=== PATIENT | female | born 1955 | race Caucasian/White ===

== ENCOUNTER 2023-06-14 20:02 | Emergency (ER) | payer OTHER ==
[~2023-06-14] VITALS: Ht 162.6 cm; Wt 81.7 kg
[~2023-06-14 20:02] MED LIST: CELE200 PO; DYAZIDE 37.5-21 EACH PO; ELIQUIS5 M3 PO; OMEP20ER PO; Ventolin/Prove6.7 GM INH
[2023-06-14 20:15] VITALS: BP 147/98
[2023-06-14] MEDS ORDERED: RX Prepack 6 Tabs Oxycodone 5mg UD ONE (23:25)
== END 2023-06-14 23:40 | disposition home or self-care (01) ==
LOC: ER 20:02
DX: S42.331A Displaced oblique fracture of shaft of humerus, right arm, initial encounter for closed fracture (principal); S00.03XA Contusion of scalp, initial encounter; Z79.899 Other long term (current) drug therapy; Y92.814 Boat as the place of occurrence of the external cause; Z79.51 Long term (current) use of inhaled steroids; Z79.01 Long term (current) use of anticoagulants; W01.0XXA Fall on same level from slipping, tripping and stumbling without subsequent striking against object, initial encounter
CPT/HCPCS: 70450; 73060; 99284-25; A9270

== ENCOUNTER → 2023-09-30 | Outpatient (CLI) | payer OTHER ==
[~2023-09-30] MED LIST changes: +BUDESONIDE-FO10.2 G3 INH; +Norco 5-325 Ta1 EACH PO
[2023-09-30 11:52] LABS: Source, Urine Clean Catch
[2023-09-30 19:02] LABS: Appearance, Urine Clear (Clear); Bilirubin, Urine Neg (Neg); Blood, Urine 1+ (Neg); Color, Urine Yellow (P-Yellow); Glucose Qualitative, Urine Neg (Neg); Ketones, Urine Neg (Neg); Leukocyte Esterase, Urine 1+ (Neg); Nitrite, Urine Neg (Neg); Protein, Urine Neg (Neg); Urobilinogen, Urine NORM (Normal)
[2023-09-30 19:22] LABS: Bacteria Few /hpf; Squamous Epithelial Cells Few /hpf (Few); Transitional Epithelial Cells Rare /hpf (0-Rare)
[2023-09-30 19:40] LABS: Microalb/Creat Ratio UR, Rand Unable to Calculate mg/g (0.000-30.000); Microalbumin, Random Urine <5.000 mg/L (0.000-20.000)
== END | disposition home or self-care (01) ==
LOC: LAB 11:51 → LAB SHORT 11:51
PROVIDERS: Student in an Organized Health Care Education/Training Program
DX: N18.31 Chronic kidney disease, stage 3a (principal)
CPT/HCPCS: 81001; 82043; 82570

== ENCOUNTER 2023-10-01 18:50 | Inpatient (IN) | payer OTHER ==
[~2023-10-01] VITALS: Ht 170.2 cm; Wt 72.1 kg
[2023-10-01 19:16] LABS: BASOPHILS ABSOLUTE AUTO 0.02 K/mm3 (0.00-0.23); BASOPHILS PERCENT AUTO 0 % (0-2); EOSINOPHILS ABSOLUTE AUTO 0.03 K/mm3 (0.00-0.68); EOSINOPHILS PERCENT AUTO 1 % (0-6); Hematocrit 35.5 % (33.0-51.0); Hemoglobin 11.6 g/dL (11.5-16.0); IMMATURE GRAN PERCENT AUTO 0 % (0-1); LYMPHOCYTES ABSOLUTE AUTO 1.24 K/mm3 (0.84-5.20); LYMPHOCYTES PERCENT AUTO 25 % (21-46); MONOCYTES ABSOLUTE AUTO 0.46 K/mm3 (0.16-1.47); MONOCYTES PERCENT AUTO 9 % (4-13); Mean Corpuscular HGB 31.8 pg (26.0-34.0); Mean Corpuscular HGB Conc 32.7 g/dL (31.5-36.5); Mean Corpuscular Volume 97 fL (80-100); Mean Platelet Volume 8.9 fL (9.1-12.4); NEUTROPHILS ABSOLUTE AUTO 3.16 K/mm3 (1.96-9.15); NEUTROPHILS PERCENT AUTO 64 % (41-73); Platelet Count 223 K/mm3 (150-400); RDW Coefficient Variation 12.6 % (11.7-14.2); RDW Standard Deviation 45.1 fL (35.1-46.3); Red Blood Cell Count 3.65 M/mm3 (3.80-5.20); White Blood Cell Count 4.91 K/mm3 (4.00-11.30)
[2023-10-01 19:34] LABS: Albumin, Blood 3.1 g/dL (3.4-5.0); Albumin/Globulin Ratio 1.2 (0.8-1.8); Bilirubin, Total 0.3 mg/dL (0.1-1.0); Bun/Creatinine Ratio 9.9 (12.0-20.0); Calcium, Blood 8.6 mg/dL (8.5-10.1); Creatinine, Blood 1.01 mg/dL (0.40-1.00); Globulin, Blood 2.5 g/dL (2.2-4.0); Potassium, Blood 4.2 mmol/L (3.5-5.5); Total Protein, Blood 5.6 g/dL (6.4-8.2)
[2023-10-01] MEDS ORDERED: Ondansetron HCl 2 MG / ML 2ML Vial IV ONE (20:20)
[2023-10-01] MEDS ORDERED: NS 1,000 ML IV SCH ×3 (20:20→23:40)
[2023-10-01 21:58] LABS: BASOPHILS ABSOLUTE AUTO 0.01 K/mm3 (0.00-0.23); BASOPHILS PERCENT AUTO 0 % (0-2); EOSINOPHILS ABSOLUTE AUTO 0.03 K/mm3 (0.00-0.68); EOSINOPHILS PERCENT AUTO 1 % (0-6); IMMATURE GRAN ABSOLUTE AUTO 0.03 K/mm3 (0.00-0.10); IMMATURE GRAN PERCENT AUTO 1 % (0-1); LYMPHOCYTES ABSOLUTE AUTO 1.19 K/mm3 (0.84-5.20); LYMPHOCYTES PERCENT AUTO 21 % (21-46); MONOCYTES ABSOLUTE AUTO 0.47 K/mm3 (0.16-1.47); MONOCYTES PERCENT AUTO 8 % (4-13); Mean Corpuscular HGB 31.4 pg (26.0-34.0); Mean Corpuscular HGB Conc 32.3 g/dL (31.5-36.5); Mean Corpuscular Volume 98 fL (80-100); Mean Platelet Volume 9.1 fL (9.1-12.4); NEUTROPHILS ABSOLUTE AUTO 4.06 K/mm3 (1.96-9.15); NEUTROPHILS PERCENT AUTO 70 % (41-73); Platelet Count 199 K/mm3 (150-400); RDW Coefficient Variation 12.6 % (11.7-14.2); Red Blood Cell Count 3.18 M/mm3 (3.80-5.20); White Blood Cell Count 5.79 K/mm3 (4.00-11.30)
[2023-10-01] MEDS ORDERED: TraMADol HCl 50 MG Tab PO PRN (22:30)
[2023-10-01] MEDS ORDERED: Ondansetron 4 MG TAB PO PRN (22:30)
[2023-10-01] MEDS ORDERED: Acetaminophen 325 MG TABLET PO PRN (22:30)
[2023-10-01] MEDS ORDERED: OxyCODONE HCL 5 MG TAB PO PRN (22:30)
[2023-10-01] MEDS ORDERED: NS 1,000 ML IV ONE ×2 (22:53→23:15)
[2023-10-01 23:20] LABS: Calcium, Ionized (POC) 1.07 mmol/L (1.10-1.46); Chloride (POC) 96 mmol/L (98-108); Creatinine (POC) 1.2 mg/dL (0.6-1.0); Glucose (ISTAT POC) 100 mg/dL (70-99); Hemoglobin (POC) 9.5 g/dL (12.0-16.0); Potassium (POC) 3.9 mmol/L (3.5-5.5); Sodium (POC) 128 mmol/L (135-148); Total CO2 (POC) 17 mmol/L (21-32)
[2023-10-02] VITALS (51 sets, daily range): BP systolic 99–156; BP diastolic 52–121
--- NOTE | 2023-10-02 02:59 | NUR ---
ARRIVAL TO ICU PT ARRIVED TO ICU 3 AT 0140 VIA ED BED AND TRANSFERED OVER TO ICU BED VIA SLIDE SHEET. SHE IS HERE FOR A FALL R/T A DOG KNOCKING HER OVER AND NOW HAS A VERY LARGE HEMATOMA ON HER BUTTOCK AND HAS HAD TWO SYNCOPAL EPISODES. SHE IS A/O X4 AND ABLE TO MAKE HER NEEDS KNOWN. SHE STATES THAT SHE IS "SORE" BUT DECLINES NEEDED PAIN MEDICATION AT THIS TIME; PRN'S AVAILABLE. SPO2 >97% ON RA. AFEBRILE. HR 80-90'S. SBP 100-130'S WITH MAP >65; NO C/O DIZZINESS. NO N/V. PUREWICK IN PLACE WITH NO OUTPUT AT THIS TIME. ABRASION NOTED TO RT FOREARM; DRESSING PLACED AND PICTURE IN CHART. HEMATOMA TO BUTTOCKS OUTLINED AND PICTURES IN CHART. SEE ADMISSION ASSESSMENT FOR FULL ASSESSMENT.
[2023-10-02] MEDS ORDERED: Lactated Ringer's 1,000 ML IV SCH (03:00)
[2023-10-02] MEDS ORDERED: Omeprazole 20 MG CapCR PO SCH (06:00)
--- NOTE | 2023-10-02 07:00 | NUR ---
ASSUMPTION OF CARE PT IS AWAKE, A&OX4 WITH PLEASANT AFFECT. SHE DENIES ANY COCCYX/BACK/BUTTOCKS DISCOMFORT. BRUISED AREA VISUALIZED WITH RL GUNTER. AREA IS OUTLINED AND HAS APPEARED TO HAVE GROWN LARGER ON THE R BUTTOCK. TISSUE IS SOFT/NONTENDER. PT DENIES DIZZINESS AT THIS TIME BUT STS SHE HAS A HISTORY OF VERTIGO. NSR ON MONITOR, BP STABLE WITH MAP >65. PUREWICK IN PLACE. BED IN LOW POSITION, CALL LIGHT WITHIN REACH.
--- NOTE | 2023-10-02 07:01 | NUR ---
END OF SHIFT SUMMARY NO ACUTE EVENTS SINCE ARRIVAL TO ICU. SHE CONT TO BE A/O X4 AND ABLE TO MAKE HER NEEDS KNOWN. PRN PAIN MEDS GIVEN AND HELPFUL. SPO2 >97% ON RA. AFEBRILE. HR 80'S. SBP 110-115 WITH MAP >65; NO EPISODES OF SYNCOPY. NO EPISODES OF NAUSEA. PUREWICK IN PLACE AND PT USING SUCESSFULLY. LR INFUSING AT 100ML/HR. WILL REPORT TO AM RN WHEN AVAILABLE.
[2023-10-02 07:51] LABS: Albumin, Blood 2.8 g/dL (3.4-5.0); Albumin/Globulin Ratio 1.3 (0.8-1.8); Bilirubin, Total 0.7 mg/dL (0.1-1.0); Bun/Creatinine Ratio 7.1 (12.0-20.0); Calcium, Blood 7.8 mg/dL (8.5-10.1); Creatinine, Blood 0.99 mg/dL (0.40-1.00); Globulin, Blood 2.2 g/dL (2.2-4.0); Potassium, Blood 4.1 mmol/L (3.5-5.5)
[2023-10-02 08:01] LABS: Hematocrit 32.6 % (33.0-51.0); Hemoglobin 10.8 g/dL (11.5-16.0)
[2023-10-02] MEDS ORDERED: Docusate Sodium 100 MG Cap PO SCH (09:00)
[2023-10-02 10:12] LABS: Hematocrit 33.1 % (33.0-51.0); Hemoglobin 10.9 g/dL (11.5-16.0)
--- NOTE | 2023-10-02 11:14 | NUR ---
ORTHOSTATIC BP ORTHOSTATIC BP DONE. PT DENIES DIZZINESS/VERTIGO AND TOLERATED WELL. LYIN/86 SITTIN/100 STANDIN/121 LYIN/74 PLAN TO ATTEMPT AMBULATION TRIAL THIS AFTERNOON.
[2023-10-02] MEDS ORDERED: DiphenhydrAMINE HCL 25 MG Cap PO PRN (14:55)
[2023-10-02 16:44] LABS: Hematocrit 31.8 % (33.0-51.0); Hemoglobin 10.5 g/dL (11.5-16.0)
--- NOTE | 2023-10-02 18:16 | NUR ---
SHIFT SUMMARY PT REMAINS A&OX4 WITH PLEASANT AFFECT. BRUISING HAS INCREASED SOME THROUGHT OUT THE SHIFT. BUTTOCKS APPEAR UNCHANGED THROUGHOUT THE DAY BUT SOME MILD BRUISING ALONG THE L SIDE OF HER BACK HAS APPEARED. ALL DISCOLORED AREAS ARE SOFT/NONTENDER. SHE REMAINS ON RA WITH SPO2 >95%. NSR ON MONITOR WITH RATE IN 80S-90S. BP STABLE THROUGHOUT THE DAY. NO ORTHOSTATIC HYPOTENSION THIS SHIFT. PT AMBULATED AROUND UNIT WITH STEADY GAIT. PT DID REPORT MILD VERTIGO BUT STS THIS HAS BEEN OCCURING FOR OVER TWO MONTHS SINCE SHE HAD HER SHOULDER REPAIRED. SHE STS WHEN SYMPTOMS OCCUR THEY GENERALLY SUBSIDE AFTER A COUPLE MINUTES. SHE HAS VOIDED THROUGHOUT THE DAY. PUREWICK REMOVED AND PT CALLS FOR ASSISTANCE TO TOILET. BED IN LOW POSITION, CALL LIGHT WITHIN REACH.
--- NOTE | 2023-10-02 20:02 | NUR ---
Assumed care of pt at 1900 Pt resting on bed, sitting up watching tv show. Pt is AOX4 and pleasant w/ staff. Denies current needs and takes po medication w/ out incident. Pt on ra, lungs clear t/o. O2 sats >96%. Pt on ekg monitor, NSR rate of 80s observed. BP stable. Hematoma to buttocks observed, appears deep purple/blue. PT reports mild pain and is medicated per emar. Call light w/ in reach, care continues.
[2023-10-03] VITALS (11 sets, daily range): BP systolic 104–157; BP diastolic 63–85
[2023-10-03 03:48] LABS: Hematocrit 30.1 % (33.0-51.0); Hemoglobin 9.9 g/dL (11.5-16.0)
--- NOTE | 2023-10-03 05:05 | NUR ---
End of shift summary No acute events overnight. Pt remained AOx4 and cooperative. Was able to use call light appropriately- ambulated seft to toilet when needed, stand by assist provided. Pt remained on room air, maintained O2 sats above 95% throughout shift. HR 80s-NSR. BP stable. Call light w/ in reach. Will report to oncoming RN when available. Care continues.
--- NOTE | 2023-10-03 07:00 | NUR ---
ASSUMPTION OF CARE PT IS A&OX4 WITH PLEASANT AFFECT. SHE REPORTS FEELING GENERALIZED SORENESS. DENIES DIZZINESS/LIGHTHEADEDNESS. SHE REMAINS ON RA WITH SPO2 >95%. NSR ON MONITOR WITH RATE IN 60S-70S. BP STABLE. DENIES NEED TO VOID AT THIS TIME. PT ABLE TO ROLL WITHOUT ASSISTANCE TO VISUALIZE BRUISING. HOSPITALIST RESIDENT AT BEDSIDE. CALL LIGHT WITHIN REACH.
--- NOTE | 2023-10-03 09:59 | NUR ---
UPDATE PT TRANSITIONED TO MED NO TELE. SHE REMAINS A&OX4. AMBULATES WITH STEADY GAIT TO TOILET AND SINK WITH SUPERVISION. PLAN TO START HEPARIN GTT THIS AFTERNOON. PT STS SHE HAS NOTIFIED HER ZHANG. BED IN LOW POSITION, CALL LIGHT WITHIN REACH, TOLL COLLECTOR AT BEDSIDE.
[2023-10-03 12:03] LABS: International Normalized Ratio 0.97; Prothrombin Time Results 10.4 Sec (9.7-11.5)
[2023-10-03] MEDS ORDERED: Dose Adjust by Pharmacy XX STA ×2 (12:09→19:33)
[2023-10-03] MEDS ORDERED: Heparin Sodium,Porcine/0.5 NS 500 ML IV SCH (12:10)
[2023-10-03] MEDS ORDERED: Sennosides 8.6 MG Tab PO SCH (14:20)
--- NOTE | 2023-10-03 17:31 | NUR ---
SHIFT SUMMARY PT RECEIVING HEPARIN 12UNITS/KG/HR. SHE REMAINS A&OX4. STANDBY ASSIST WITH AMBULATION. PERFORMS OWN ADLS. C/O LOWER BACK/BUTTOCKS DISCOMFORT AND MEDICATED PER EMAR. BRUISING APPEARS UNCHANGED SINCE BEGINNING OF SHIFT. PT HAS TOLERATED MEALS WELL. REPORTS FEELING CONSTIPATED, MEDICATED PER EMAR. PT HAS VOIDED SEVERAL TIMES THIS SHIFT. PT'S AT BEDSIDE THIS AFTERNOON AND UPDATED ON PLAN OF CARE. BED IN LOW POSITION, CALL LIGHT WITHIN REACH.
[2023-10-03] MEDS ORDERED: Albuterol HFA200 ACT/6.7 GM INH INH PRN (18:20)
--- NOTE | 2023-10-03 19:00 | NUR ---
Assumed care of pt at 1900 Pt watching TV, sitting up in bed. AOx4 and talkative/pleasant with staff. On room air- sats are 97%. BP stable. Pt reports mild pain and aching to buttocks/ lower back- sts /10. Will medicate per emar. Call light w/ in reach. Denies futher needs. Care continues.
[2023-10-03 19:03] LABS: Hematocrit 32.1 % (33.0-51.0); Hemoglobin 10.4 g/dL (11.5-16.0)
--- NOTE | 2023-10-03 22:30 | NUR ---
PATIENT TRANSFERED TO ROOM 359 FROM ICU. PATIENT ARRIVED TO ROOM VIA BED. PATIENT ABLE TO SELF TRANSFER FROM ICU BED TO BED IN ROOM. PATIENT ARRIVED WITH PHONE, PURSE, AND ONE PATIENTS BELONGS BAG. PATIENT ARRIVED WITH HEPARIN DRIP. PATIENT ORIENTED TO ROOM AND HEPARIN DRIP CONFIRMED. THIS RN TO ASSUME CARE.
--- NOTE | 2023-10-03 22:30 | NUR ---
PATIENT TRANSFERED TO ROOM 359 FROM ICU3. PATIENT ARRIVED TO ROOM AND ABLE TO SELF TRANSFER TO BED IN ROOM. PATIENT CALLS APPROPRIATELY AND IS ABLE TO MAKE HER NEEDS KNOWN. PATIENT SBA WITH HEPARIN DRIP TO BATHROOM. PATIENT C/O HEADACHE-RELIEVED BY TYLENOL. NO ACUTE CHANGES. BED IS LOCKED IN THE LOWEST POSITION WITH CALL LIGHT IN REACH. CARE IS ONGOING.
[2023-10-04 02:24] LABS: BASOPHILS ABSOLUTE AUTO 0.03 K/mm3 (0.00-0.23); BASOPHILS PERCENT AUTO 1 % (0-2); EOSINOPHILS ABSOLUTE AUTO 0.15 K/mm3 (0.00-0.68); EOSINOPHILS PERCENT AUTO 3 % (0-6); Hemoglobin 10.1 g/dL (11.5-16.0); IMMATURE GRAN ABSOLUTE AUTO 0.01 K/mm3 (0.00-0.10); IMMATURE GRAN PERCENT AUTO 0 % (0-1); LYMPHOCYTES ABSOLUTE AUTO 2.18 K/mm3 (0.84-5.20); LYMPHOCYTES PERCENT AUTO 49 % (21-46); MONOCYTES PERCENT AUTO 9 % (4-13); Mean Corpuscular HGB 31.3 pg (26.0-34.0); Mean Corpuscular HGB Conc 32.6 g/dL (31.5-36.5); Mean Corpuscular Volume 96 fL (80-100); Mean Platelet Volume 9.3 fL (9.1-12.4); NEUTROPHILS ABSOLUTE AUTO 1.68 K/mm3 (1.96-9.15); NEUTROPHILS PERCENT AUTO 38 % (41-73); Platelet Count 216 K/mm3 (150-400); RDW Coefficient Variation 14.2 % (11.7-14.2); RDW Standard Deviation 50.3 fL (35.1-46.3); Red Blood Cell Count 3.23 M/mm3 (3.80-5.20); White Blood Cell Count 4.45 K/mm3 (4.00-11.30)
[2023-10-04 02:28] LABS: Albumin, Blood 2.8 g/dL (3.4-5.0); Albumin/Globulin Ratio 1.1 (0.8-1.8); Bilirubin, Total 0.4 mg/dL (0.1-1.0); Bun/Creatinine Ratio 7.3 (12.0-20.0); Calcium, Blood 8.2 mg/dL (8.5-10.1); Creatinine, Blood 0.96 mg/dL (0.40-1.00); Globulin, Blood 2.6 g/dL (2.2-4.0); Potassium, Blood 3.8 mmol/L (3.5-5.5); Total Protein, Blood 5.4 g/dL (6.4-8.2)
[2023-10-04 02:58] VITALS: BP 131/74
[2023-10-04] MEDS ORDERED: Dose Adjust by Pharmacy XX STA (03:01)
--- NOTE | 2023-10-04 05:23 | NUR ---
SHIFT SUMMARY. PATIENT IS A&OX4. PATIENT IS PLEASANT AND COOPERATIVE WITH CARE. PATIENT MAKES HER NEEDS KNOWN. PATIENT IS A SBA TO THE BATHROOM FOR SAFETY AND ASSISTANCE WITH IV POLE. PATIENT C/O HEADACHE-MEDICATED WITH TYLENOL PER EMAR WITH RELIEF. PATIENT WILL CALL TO USE THE BATHROOM. HEPARIN DOSE TITRATED DOWN PER PHARMCY. BED IS LOCKED IN THE LOWEST POSITION WITH CALL LIGHT IN REACH. CARE IS ONGOING.
[2023-10-04 07:09] VITALS: BP 124/93
[2023-10-04] MEDS ORDERED: Apixaban 5 MG Tab PO SCH (08:00)
[2023-10-04 10:42] LABS: Hemoglobin 10.8 g/dL (11.5-16.0)
--- NOTE | 2023-10-04 12:27 | NUR ---
DISCHARGE NOTE PT DISCHARGED HOME AT APPROX 12:15. PT PROVIDED W/ VERBAL AND WRITTEN INSTRUCTIONS AND REPORTED UNDERSTANDING. PT A&OX4, VSS, AMB IND, TOLERATING PO, VOIDING, AND DENIED PAIN. BELONGINGS WERE RETURNED AND PT ESCOURTED OUT VIA W/C BY VIRI MACHUCA.
== END 2023-10-04 12:25 | disposition home or self-care (01) | DRG 812 ==
LOC: ER 18:50 → PCU 22:27 → ICUE 22:27 → MEDS 10-03 22:29 → ENPENDDIS 10-04 10:46 → MEDS 10-04 12:25
PROVIDERS: Emergency Medicine; Student in an Organized Health Care Education/Training Program; ADMIT Student in an Organized Health Care Education/Training Program
PROC: 30233N1 Transfusion of Nonautologous Red Blood Cells into Peripheral Vein, Percutaneous Approach (ICD-10-PCS; principal; 2023-10-01)
DX: D62 Acute posthemorrhagic anemia (principal); E87.1 Hypo-osmolality and hyponatremia; E87.6 Hypokalemia; S30.0XXA Contusion of lower back and pelvis, initial encounter; W18.39XA Other fall on same level, initial encounter; I95.9 Hypotension, unspecified; J44.9 Chronic obstructive pulmonary disease, unspecified; G47.33 Obstructive sleep apnea (adult) (pediatric); Z96.643 Presence of artificial hip joint, bilateral; Z87.891 Personal history of nicotine dependence; Z86.718 Personal history of other venous thrombosis and embolism; Z79.01 Long term (current) use of anticoagulants; Z79.1 Long term (current) use of non-steroidal anti-inflammatories (NSAID); Z79.891 Long term (current) use of opiate analgesic; Z79.51 Long term (current) use of inhaled steroids
CPT/HCPCS: 36415; 36430; 51798; 70450; 74177; 80047; 80053; 83930; 83935; 84300; 85014; 85018; 85025; 85610; 85730; 86850; 86900; 86901; 86923; 93005; 93010; 94760; 96361; 96374-59; 99285-25; A9270; J1644; J2405; J7030; J7120; P9016; Q9967

== ENCOUNTER 2023-10-28 08:30 | Emergency (ER) | payer OTHER ==
[~2023-10-28] VITALS: Ht 170.2 cm; Wt 70.3 kg
[2023-10-28 09:03] VITALS: BP 103/87
[2023-10-28] MEDS ORDERED: TRAM50 PO (09:16)
[2023-10-28] MEDS ORDERED: ASPI81CH PO (09:16)
[2023-10-28] MEDS ORDERED: LABE100 PO (09:18)
[2023-10-28] MEDS ORDERED: Acetaminophen 500 MG Tab PO ONE (09:50)
[2023-10-28 10:27] LABS: BASOPHILS ABSOLUTE AUTO 0.03 K/mm3 (0.00-0.23); BASOPHILS PERCENT AUTO 1 % (0-2); EOSINOPHILS ABSOLUTE AUTO 0.02 K/mm3 (0.00-0.68); EOSINOPHILS PERCENT AUTO 1 % (0-6); IMMATURE GRAN PERCENT AUTO 0 % (0-1); LYMPHOCYTES ABSOLUTE AUTO 0.71 K/mm3 (0.84-5.20); LYMPHOCYTES PERCENT AUTO 20 % (21-46); MONOCYTES ABSOLUTE AUTO 0.43 K/mm3 (0.16-1.47); MONOCYTES PERCENT AUTO 12 % (4-13); Mean Corpuscular HGB 32.5 pg (26.0-34.0); Mean Corpuscular HGB Conc 33.3 g/dL (31.5-36.5); Mean Corpuscular Volume 98 fL (80-100); Mean Platelet Volume 8.6 fL (9.1-12.4); NEUTROPHILS ABSOLUTE AUTO 2.42 K/mm3 (1.96-9.15); NEUTROPHILS PERCENT AUTO 67 % (41-73); Platelet Count 332 K/mm3 (150-400); RDW Coefficient Variation 14.6 % (11.7-14.2); RDW Standard Deviation 52.6 fL (35.1-46.3); White Blood Cell Count 3.61 K/mm3 (4.00-11.30)
[2023-10-28 10:38] LABS: Albumin, Blood 4.1 g/dL (3.4-5.0); Albumin/Globulin Ratio 1.3 (0.8-1.8); Bilirubin, Total 0.7 mg/dL (0.1-1.0); Bun/Creatinine Ratio 7.2 (12.0-20.0); Calcium, Blood 9.3 mg/dL (8.5-10.1); Creatinine, Blood 0.97 mg/dL (0.40-1.00); Globulin, Blood 3.2 g/dL (2.2-4.0); Magnesium, Blood 1.9 mg/dL (1.6-2.4); Potassium, Blood 3.4 mmol/L (3.5-5.5); Total Protein, Blood 7.3 g/dL (6.4-8.2)
[2023-10-28 11:50] LABS: Source, Urine Clean Catch
[2023-10-28 12:02] LABS: Appearance, Urine Clear (Clear); Bilirubin, Urine Neg (Neg); Blood, Urine Neg (Neg); Color, Urine Yellow (P-Yellow); Glucose Qualitative, Urine Neg (Neg); Ketones, Urine Neg (Neg); Leukocyte Esterase, Urine 1+ (Neg); Nitrite, Urine Neg (Neg); Protein, Urine Neg (Neg); Urobilinogen, Urine NORM (Normal)
[2023-10-28 12:31] LABS: Bacteria Rare /hpf; Red Blood Cells, Urine 0-2 /hpf (0-2); Squamous Epithelial Cells Few /hpf (Few); White Blood Cells, Urine 0-2 /hpf (0-5)
== END 2023-10-28 12:49 | disposition home or self-care (01) ==
LOC: ER 08:30
PROVIDERS: Emergency Medicine
DX: R42 Dizziness and giddiness (principal); J44.9 Chronic obstructive pulmonary disease, unspecified; I10 Essential (primary) hypertension; Z87.891 Personal history of nicotine dependence; Z79.82 Long term (current) use of aspirin; Z79.899 Other long term (current) drug therapy
CPT/HCPCS: 70450; 70496; 70498; 80053; 81001; 83735; 85025; 93005; 93010; A9270; Q9967

== ENCOUNTER 2025-01-29 00:14 | Observation (INO) | payer OTHER ==
[2025-01-29] VITALS (7 sets, daily range): BP systolic 123–145; BP diastolic 68–92
[~2025-01-29] VITALS: Ht 170.2 cm; Wt 64.9 kg
[~2025-01-29 00:14] MED LIST changes: +ALBU90OI INH; +ASPI81CH PO; +LABE100 PO; +TRAM50 PO; -Ventolin/Prove6.7 GM INH
[2025-01-29] MEDS ORDERED: NS 1,000 ML IV SCH ×2 (01:15→06:15)
[2025-01-29 01:21] LABS: BASOPHILS ABSOLUTE AUTO 0.01 K/mm3 (0.00-0.23); BASOPHILS PERCENT AUTO 0 % (0-2); EOSINOPHILS ABSOLUTE AUTO 0.04 K/mm3 (0.00-0.68); EOSINOPHILS PERCENT AUTO 1 % (0-6); Hematocrit 33.3 % (33.0-51.0); Hemoglobin 11.4 g/dL (11.5-16.0); IMMATURE GRAN ABSOLUTE AUTO 0.03 K/mm3 (0.00-0.10); IMMATURE GRAN PERCENT AUTO 1 % (0-1); LYMPHOCYTES ABSOLUTE AUTO 0.77 K/mm3 (0.84-5.20); LYMPHOCYTES PERCENT AUTO 21 % (21-46); MONOCYTES ABSOLUTE AUTO 0.40 K/mm3 (0.16-1.47); MONOCYTES PERCENT AUTO 11 % (4-13); Mean Corpuscular HGB Conc 34.2 g/dL (31.5-36.5); Mean Corpuscular Volume 98 fL (80-100); NEUTROPHILS ABSOLUTE AUTO 2.48 K/mm3 (1.96-9.15); NEUTROPHILS PERCENT AUTO 67 % (41-73); NRBC ABSOLUTE 0.00 K/mm3 (0.00-0.02); NRBC Auto 0.0 /100 WBC (0.0-0.2); Platelet Count 276 K/mm3 (150-400); RDW Coefficient Variation 13.8 % (11.7-14.2); RDW Standard Deviation 49.4 fL (35.1-46.3)
[2025-01-29 01:34] LABS: Ethanol (Alcohol), Blood, Med <3 mg/dL
[2025-01-29 01:37] LABS: Alanine Aminotransfer (ALT/SGP 20 U/L (12-78); Albumin, Blood 3.2 g/dL (3.4-5.0); Albumin/Globulin Ratio 1.0 (0.8-1.8); Bilirubin, Total 0.4 mg/dL (0.1-1.0); Blood Urea Nitrogen 13 mg/dL (8-24); CO2, Blood 28 mmol/L (21-32); Calcium, Blood 8.8 mg/dL (8.5-10.1); Chloride, Blood 91 mmol/L (98-108); Creatinine, Blood 0.97 mg/dL (0.40-1.00); Globulin, Blood 3.2 g/dL (2.2-4.0); Glucose, Blood 110 mg/dL (70-99); Sodium, Blood 125 mmol/L (136-145); Total Protein, Blood 6.4 g/dL (6.4-8.2)
[2025-01-29 01:38] LABS: Anion Gap 11 mmol/L (3-11); Aspartate Aminotrans (AST/SGOT 30 U/L (12-37); Potassium, Blood 4.6 mmol/L (3.5-5.5)
[2025-01-29] MEDS ORDERED: CELE200 PO (03:20)
[2025-01-29] MEDS ORDERED: Magnesium Hydroxide Conc 10 ML UDC PO PRN (03:25)
[2025-01-29] MEDS ORDERED: FLU VACC TS2025(65UP)/MF59C/PF 45 MCG/0.5 ML SYRINGE IM SCH (03:35)
[2025-01-29] MEDS ORDERED: TRAZ50 PO (03:45)
[2025-01-29] MEDS ORDERED: TRIA50 PO (03:45)
[2025-01-29] MEDS ORDERED: 1/2 NS 250ml250 ML (03:46)
[2025-01-29 05:09] LABS: BASOPHILS ABSOLUTE AUTO 0.02 K/mm3 (0.00-0.23); BASOPHILS PERCENT AUTO 1 % (0-2); EOSINOPHILS ABSOLUTE AUTO 0.03 K/mm3 (0.00-0.68); EOSINOPHILS PERCENT AUTO 1 % (0-6); Hematocrit 29.9 % (33.0-51.0); Hemoglobin 9.9 g/dL (11.5-16.0); IMMATURE GRAN ABSOLUTE AUTO 0.02 K/mm3 (0.00-0.10); IMMATURE GRAN PERCENT AUTO 1 % (0-1); LYMPHOCYTES ABSOLUTE AUTO 0.72 K/mm3 (0.84-5.20); LYMPHOCYTES PERCENT AUTO 23 % (21-46); MONOCYTES ABSOLUTE AUTO 0.41 K/mm3 (0.16-1.47); MONOCYTES PERCENT AUTO 13 % (4-13); Mean Corpuscular HGB Conc 33.1 g/dL (31.5-36.5); Mean Corpuscular Volume 101 fL (80-100); NEUTROPHILS ABSOLUTE AUTO 1.98 K/mm3 (1.96-9.15); NEUTROPHILS PERCENT AUTO 62 % (41-73); NRBC ABSOLUTE 0.00 K/mm3 (0.00-0.02); NRBC Auto 0.0 /100 WBC (0.0-0.2); Platelet Count 238 K/mm3 (150-400); RDW Coefficient Variation 13.7 % (11.7-14.2); RDW Standard Deviation 50.6 fL (35.1-46.3)
[2025-01-29 05:30] LABS: Anion Gap 9.0 mmol/L (3-11); Blood Urea Nitrogen 11.0 mg/dL (8-24); CO2, Blood 28.0 mmol/L (21-32); Calcium, Blood 8.1 mg/dL (8.5-10.1); Chloride, Blood 97.0 mmol/L (98-108); Creatinine, Blood 0.91 mg/dL (0.40-1.00); Glucose, Blood 97.0 mg/dL (70-99); Magnesium, Blood 1.7 mg/dL (1.6-2.4); Potassium, Blood 3.6 mmol/L (3.5-5.5); Sodium, Blood 130.0 mmol/L (136-145)
--- NOTE | 2025-01-29 07:40 | NUR ---
Shift Summary Pt admitted from ED for hyponatremia. She had an episode of syncope at home and fell and hit her knee. She is AOx4, 1 SBA. On 1L free water restriction. Rcving NS @ 75. Calls appropriatly. 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
[2025-01-29 07:54] LABS: Osmolality, Serum 268.0 mos/KG (275-300)
[2025-01-29] MEDS ORDERED: DYAZIDE 37.5-21 EACH PO (11:06)
[2025-01-29] MEDS ORDERED: BENADRYL25 MG PO (11:06)
[2025-01-29] MEDS ORDERED: BUDESONIDE-FO10.2 G2 INH (11:06)
[2025-01-29] MEDS ORDERED: GNP PAIN RLF P1 EACH PO (11:07)
[2025-01-29] MEDS ORDERED: Albuterol 2.5 MG/3 ML VIAL INH PRN (16:00)
[2025-01-29] MEDS ORDERED: Albuterol HFA200 ACT/6.7 GM INH INH PRN (16:05)
[2025-01-29] MEDS ORDERED: Formoterol/Mometasone MDI 5/200 mcg 13 GM INH SCH (16:20)
--- NOTE | 2025-01-29 16:46 | NUR ---
SHIFT SUMMARY: PATIENT IS A&OX4/INDEPENDENT TO SBA. PATIENT REPORTS BASELINE VERTIGO. NO SYNCOPE OR NEAR FALLS DURING THE SHIFT. IV FLUIDS D/C'D; 1L FREE WATER RESTRICTION AND 1800 TOTAL FLUID RESTRICTION. ORTHOS OBTAINED REPORTED TO DR. ROONEY. PATIENT IN ROOM, ALERT, IN HER BED, CALL LIGHT WITHIN REACH, NO SIGNS OR SYMPTOMS OF DISTRESS, PLAN OF CARE ONGOING. EVENTS ON TELE REPORTED TO DR. ROONEY; NO S/S FROM PATIENT. ORDERS PLACED.
[2025-01-30 00:06] VITALS: BP 137/88
[2025-01-30 02:58] VITALS: BP 133/86
[2025-01-30 05:29] LABS: BASOPHILS ABSOLUTE AUTO 0.01 K/mm3 (0.00-0.23); BASOPHILS PERCENT AUTO 0 % (0-2); EOSINOPHILS ABSOLUTE AUTO 0.03 K/mm3 (0.00-0.68); EOSINOPHILS PERCENT AUTO 1 % (0-6); Hematocrit 32.9 % (33.0-51.0); Hemoglobin 11.0 g/dL (11.5-16.0); IMMATURE GRAN ABSOLUTE AUTO 0.01 K/mm3 (0.00-0.10); IMMATURE GRAN PERCENT AUTO 0 % (0-1); LYMPHOCYTES ABSOLUTE AUTO 0.60 K/mm3 (0.84-5.20); LYMPHOCYTES PERCENT AUTO 24 % (21-46); MONOCYTES ABSOLUTE AUTO 0.39 K/mm3 (0.16-1.47); MONOCYTES PERCENT AUTO 16 % (4-13); Mean Corpuscular HGB Conc 33.4 g/dL (31.5-36.5); Mean Corpuscular Volume 99 fL (80-100); NEUTROPHILS ABSOLUTE AUTO 1.45 K/mm3 (1.96-9.15); NEUTROPHILS PERCENT AUTO 58 % (41-73); NRBC ABSOLUTE 0.00 K/mm3 (0.00-0.02); NRBC Auto 0.0 /100 WBC (0.0-0.2); Platelet Count 262 K/mm3 (150-400); RDW Coefficient Variation 14.1 % (11.7-14.2); RDW Standard Deviation 50.9 fL (35.1-46.3)
[2025-01-30 05:51] LABS: Alanine Aminotransfer (ALT/SGP 15.0 U/L (12-78); Albumin, Blood 2.7 g/dL (3.4-5.0); Albumin/Globulin Ratio 1.0 (0.8-1.8); Anion Gap 8.0 mmol/L (3-11); Aspartate Aminotrans (AST/SGOT 15.0 U/L (12-37); Bilirubin, Total 0.4 mg/dL (0.1-1.0); Blood Urea Nitrogen 8.0 mg/dL (8-24); CO2, Blood 28.0 mmol/L (21-32); Calcium, Blood 8.8 mg/dL (8.5-10.1); Chloride, Blood 104.0 mmol/L (98-108); Creatinine, Blood 0.77 mg/dL (0.40-1.00); Globulin, Blood 2.7 g/dL (2.2-4.0); Glucose, Blood 95.0 mg/dL (70-99); Potassium, Blood 3.5 mmol/L (3.5-5.5); Sodium, Blood 136.0 mmol/L (136-145); Total Protein, Blood 5.4 g/dL (6.4-8.2)
--- NOTE | 2025-01-30 06:44 | NUR ---
Shift Summary Pt started on Metoprolol tonight. She was SBA to the incase of dizzyness or vertigo. No episodes of vertigo, she was stable on her feet. No c/o pain or nausea. Pt slept well t/o most of the night. She rcvd influenza vaccine.
[2025-01-30 07:29] VITALS: BP 143/82
[2025-01-30 11:41] VITALS: BP 116/77
[2025-01-30] MEDS ORDERED: FOLI1 PO (12:32)
[2025-01-30] MEDS ORDERED: METO25 PO (12:32)
[2025-01-30] MEDS ORDERED: B-1100 M2 PO (12:32)
--- NOTE | 2025-01-30 13:09 | NUR ---
DISCHARGE NOTE: WENT OVER DISCHARGE WITH THE PATIENT AND HER AT BEDSIDE. PATIENT GOT HERSELF DRESSED AND COLLECTED BELONGINGS. PATIENT OPT OF BEING WHEELED DOWN AND WANTING TO WALK. WAS WALKED WITH MORNING CAREGIVER AND HER OFF THE UNIT. NO SIGNS OR SYMPTOMS OF DISTRESS WITH DISCHARGE.
== END 2025-01-30 12:45 | disposition home or self-care (01) ==
LOC: ER 00:14 → ERHOLD 00:15 → MEDS 00:15
PROVIDERS: Emergency Medicine; Family Medicine; Internal Medicine; ADMIT Internal Medicine
DX: R55 Syncope and collapse (principal); E87.1 Hypo-osmolality and hyponatremia; J44.9 Chronic obstructive pulmonary disease, unspecified; G47.33 Obstructive sleep apnea (adult) (pediatric); I10 Essential (primary) hypertension; D64.9 Anemia, unspecified; F10.20 Alcohol dependence, uncomplicated; Z79.01 Long term (current) use of anticoagulants; Z79.82 Long term (current) use of aspirin; Z79.899 Other long term (current) drug therapy; Z87.891 Personal history of nicotine dependence; Z90.49 Acquired absence of other specified parts of digestive tract; Z86.718 Personal history of other venous thrombosis and embolism
CPT/HCPCS: 36415; 70450; 71045; 72125; 80048; 80053; 80320; 83735; 83930; 83935; 84300; 84439; 85025; 90653; 93005; 93010; 94640; 94664; 94760; 96360; 97161; 99285-25; A9270; G0378; J7030